=== PATIENT | male | born 1995 | race Caucasian/White ===

== ENCOUNTER 2018-09-16 11:26 | Emergency (ER) | payer OTHER | END 2018-09-16 13:40 | disposition other institution (70) | LOC: ED 11:26 | DX: Z02.89 Encounter for other administrative examinations (principal) ==

== ENCOUNTER 2018-09-16 11:26 | Emergency (ER) | payer SELFPAY ==
[~2018-09-16] VITALS: Ht 162.6 cm; Wt 61.2 kg
[2018-09-16 11:27] VITALS: Ht 162.6 cm; Wt 61.2 kg
[2018-09-16 13:40] VITALS: BP 133/76
== END 2018-09-16 13:40 | disposition other institution (70) ==
LOC: ED 11:26
DX: S81.851A Open bite, right lower leg, initial encounter (principal); F32.9 Major depressive disorder, single episode, unspecified; Z90.89 Acquired absence of other organs; W54.0XXA Bitten by dog, initial encounter; Y93.89 Activity, other specified; Y92.89 Other specified places as the place of occurrence of the external cause; Y99.8 Other external cause status
CPT/HCPCS: 90715